=== PATIENT | female | born 1975 ===

== ENCOUNTER 2020-11-13 21:07 | Emergency (ER) | payer OTHER ==
[~2020-11-13] VITALS: Ht 180.3 cm; Wt 86.4 kg
[~2020-11-13 21:07] MED LIST: FLEXERIL 1010 MG/TAB PO
[2020-11-13 21:12] VITALS: TEMP 98
[2020-11-13] MEDS ORDERED: NEURONTIN300 MG/CAP PO (21:29)
[2020-11-13] MEDS ORDERED: PREDNISONE20 MG PO (23:19)
[2020-11-13] MEDS ORDERED: VALIUM 2MG T2 MG/TAB PO (23:19)
[2020-11-13 23:20] VITALS: BP 119/70; PULSE 72
== END 2020-11-13 23:36 | disposition home or self-care (01) ==
LOC: COL.ER 21:07
DX: M54.6 Pain in thoracic spine (principal); Z88.8 Allergy status to other drugs, medicaments and biological substances; X58.XXXA Exposure to other specified factors, initial encounter; Y93.72 Activity, wrestling
CPT/HCPCS: J1100; J3360

== ENCOUNTER 2020-12-28 13:05 | Emergency (ER) | payer OTHER ==
[~2020-12-28] VITALS: Ht 180.3 cm; Wt 93.7 kg
[~2020-12-28 13:05] MED LIST changes: +NEURONTIN300 MG/CAP PO; +PREDNISONE20 MG PO; +VALIUM 2MG T2 MG/TAB PO
[2020-12-28 13:18] VITALS: BP 145/91; TEMP 98
[2020-12-28] MEDS ORDERED: ZOVIRAX800 MG PO (15:20)
[2020-12-28 15:44] VITALS: PULSE 74
== END 2020-12-28 15:35 | disposition home or self-care (01) ==
LOC: COL.ER 13:05
DX: B02.9 Zoster without complications (principal); M79.661 Pain in right lower leg

== ENCOUNTER 2023-05-28 13:52 | Emergency (ER) | payer OTHER ==
[~2023-05-28] VITALS: Ht 175.3 cm; Wt 96.0 kg
[~2023-05-28 13:52] MED LIST changes: +ZOVIRAX800 MG PO
[2023-05-28 14:04] VITALS: TEMP 98.6
[2023-05-28 15:09] LABS: BASO # 0.1 K/mm3 (0.0-0.2); BASO % 0.6 % (0.0-2.0); EOS % 0.4 % (0.0-4.0); GRAN # 6.2 K/mm3 (1.4-6.5); GRAN % 75.2 % (42.2-75.2); LYMPH # 1.5 K/mm3 (1.2-3.4); LYMPH % 17.8 % (20.0-51.0); MEAN CELL VOLUME 89 fl (80.0-100.0); MEAN CORPUSCULAR HEMOGLOBIN 29 pg (27-31); MEAN CORPUSCULAR HGB CONC 33 g/dl (33.0-37.0); MEAN PLATELET VOLUME 12.5 fl (7.4-10.4); MONO # 0.5 K/mm3 (0.1-0.6); MONO % 5.6 % (1.7-9.3); PLATELET COUNT 272 K/mm3 (130-400); RED BLOOD COUNT 4.15 M/mm3 (4.10-5.30); REDCELL DISTRIBUTION WIDTH-CV 14.2 % (11.5-14.5)
[2023-05-28 15:11] LABS: HEMATOCRIT 36.8 % (37.0-47.0)
[2023-05-28 15:18] LABS: COLLECTION METHOD CLEAN CATCH
[2023-05-28 15:26] LABS: URINE APPEARANCE Clear (CLEAR/HAZY); URINE COLOR Yellow (YELLOW); URINE GLUCOSE Negative (NEGATIVE); URINE PROTEIN(semi-quant) Negative (NEGATIVE)
[2023-05-28 15:27] LABS: URINE BLOOD 2+ (NEGATIVE); URINE KETONE Negative (NEGATIVE); URINE NITRATE Negative (NEGATIVE); URINE UROBILINOGEN 0.2 E.U/dL (0.2-1.0)
[2023-05-28 15:27] LABS: ALANINE AMINOTRANSFERASE 22 U/L (0-55); ALKALINE PHOSPHATASE 73 U/L (40-150); ANION GAP 9 mmol/L (7-16); AST,SGOT 18 U/L (5-34); BILIRUBIN,TOTAL 0.3 mg/dL (0.2-1.2); BLOOD UREA NITROGEN 10 mg/dL (7-19); C-REACTIVE PROTEIN 0.55 mg/dL (0.00-0.50); CALCIUM 9.2 mg/dL (8.4-10.2); CARBON DIOXIDE 24 mmol/L (22-29); CHLORIDE 106 mmol/L (98-107); CREATININE, serum 0.72 mg/dL (0.57-1.11); GLUCOSE 98 mg/dL (70-99); LIPASE 14 U/L (8-78); POTASSIUM 3.8 mmol/L (3.5-4.5); SODIUM 139 mmol/L (136-145); TOTAL PROTEIN 7.5 gm/dL (6.2-8.1)
[2023-05-28 15:39] LABS: TROPONIN-I < 0.010 ng/mL (0.00-0.033)
[2023-05-28 15:47] LABS: SQUAMOUS EPITHELIAL 0-2 /hpf (0-10); URINE RBC 20-50 /hpf (0-2)
[2023-05-28 18:05] VITALS: BP 120/96; PULSE 80
== END 2023-05-28 18:05 | disposition home or self-care (01) ==
LOC: COL.ER 13:52
PROVIDERS: Nurse Practitioner
DX: R10.11 Right upper quadrant pain (principal); Z91.040 Latex allergy status

== ENCOUNTER 2023-07-31 13:00 | Outpatient (RCR) | payer OTHER | END 2023-08-02 | disposition home or self-care (01) | LOC: MKS.ESL.PT | DX: M54.41 Lumbago with sciatica, right side (principal); M54.6 Pain in thoracic spine; M54.2 Cervicalgia; R20.2 Paresthesia of skin ==

== ENCOUNTER 2023-08-12 16:09 | Emergency (ER) | payer OTHER ==
[~2023-08-12] VITALS: Ht 177.8 cm; Wt 90.9 kg
[2023-08-12 16:14] VITALS: TEMP 98.2
[2023-08-12 16:57] LABS: BASO # 0.1 K/mm3 (0.0-0.2); BASO % 0.6 % (0.0-2.0); EOS % 0.4 % (0.0-4.0); GRAN # 7.1 K/mm3 (1.4-6.5); GRAN % 74.8 % (42.2-75.2); HEMOGLOBIN 11.4 g/dl (12.5-16.0); LYMPH # 1.7 K/mm3 (1.2-3.4); LYMPH % 17.8 % (20.0-51.0); MEAN CELL VOLUME 90 fl (80.0-100.0); MEAN CORPUSCULAR HEMOGLOBIN 30 pg (27-31); MEAN CORPUSCULAR HGB CONC 33 g/dl (33.0-37.0); MEAN PLATELET VOLUME 12.6 fl (7.4-10.4); MONO # 0.6 K/mm3 (0.1-0.6); MONO % 6.2 % (1.7-9.3); PLATELET COUNT 257 K/mm3 (130-400); RED BLOOD COUNT 3.85 M/mm3 (4.10-5.30)
[2023-08-12 16:58] LABS: HEMATOCRIT 34.5 % (37.0-47.0)
[2023-08-12 17:26] LABS: ALANINE AMINOTRANSFERASE 20 U/L (0-55); ALBUMIN 3.6 gm/dL (3.5-5.0); ALKALINE PHOSPHATASE 73 U/L (40-150); ANION GAP 11 mmol/L (7-16); AST,SGOT 15 U/L (5-34); BLOOD UREA NITROGEN 9 mg/dL (7-19); CARBON DIOXIDE 21 mmol/L (22-29); CHLORIDE 107 mmol/L (98-107); CREATININE, serum 0.65 mg/dL (0.57-1.11); GLUCOSE 113 mg/dL (70-99); POTASSIUM 3.4 mmol/L (3.5-4.5); SODIUM 139 mmol/L (136-145); TOTAL PROTEIN 7.2 gm/dL (6.2-8.1)
[2023-08-12 17:27] LABS: BILIRUBIN,TOTAL < 0.1 mg/dL (0.2-1.2)
[2023-08-12 18:58] VITALS: BP 115/88; PULSE 85
== END 2023-08-12 18:58 | disposition home or self-care (01) ==
LOC: COL.ER 16:09
PROVIDERS: Physician Assistant
DX: N93.8 Other specified abnormal uterine and vaginal bleeding (principal); Z91.040 Latex allergy status
CPT/HCPCS: J1885; J7030